=== PATIENT | female | born 1955 | race Caucasian/White ===

== ENCOUNTER 2020-07-29 20:05 | Emergency (ER) | payer BC, OTHER | END 2020-07-29 20:20 | disposition home or self-care (01) | LOC: BURERS 20:05 | DX: M24.412 Recurrent dislocation, left shoulder (principal); E78.5 Hyperlipidemia, unspecified; I10 Essential (primary) hypertension; E66.9 Obesity, unspecified; Z79.899 Other long term (current) drug therapy; Z79.82 Long term (current) use of aspirin | CPT/HCPCS: 23650 ==